=== PATIENT | male | born 1975 | race Caucasian/White ===

== ENCOUNTER 2020-12-16 21:23 | Emergency (ER) | payer MEDICAID ==
[2020-12-16] MEDS ORDERED: LEXAPRO5 MG PO (21:43)
[2020-12-16] MEDS ORDERED: XANAX 1MG1 MG PO (21:44)
[2020-12-16 22:06] LABS: BASO # 0.09 (0.02-0.10); EOS # 0.24 (0.04-0.40); HEMATOCRIT 50.9 % (42.0-52.0); HEMOGLOBIN 16.9 g/dL (13.5-18.0); LYMPH# 3.97 (1.50-4.00); MEAN CELL VOLUME 86 fl (78-100); MEAN CORPUSCULAR HEMOGLOBIN 29 pg (27-31); MEAN CORPUSCULAR HGB CONC 33 g/dL (33-37); MEAN PLATELET VOLUME 9.6 fl (7.4-10.4); MONO # 0.79 (0.20-0.80); PLATELET COUNT 272 K/mm3 (130-400); RED BLOOD COUNT 5.92 M/mm3 (4.20-5.60)
[2020-12-16 22:16] LABS: ALBUMIN 3.7 g/dL (3.5-5.0); POTASSIUM 3.7 mmol/L (3.5-5.1); SODIUM 138 mmol/L (136-145)
[2020-12-16 22:17] LABS: CALCIUM 8.9 mg/dL (8.3-10.5)
[2020-12-16 22:19] LABS: GLUCOSE 104 mg/dL (75-110); TOTAL PROTEIN 6.9 g/dL (6.4-8.3)
[2020-12-16 22:20] LABS: CARBON DIOXIDE 22 mmol/L (22-29)
[2020-12-16 22:24] LABS: AST-SGOT 15 U/L (5-34)
[2020-12-16 22:25] LABS: ALT/SGPT 20 U/L (0-55)
[2020-12-16 22:26] LABS: ACETAMINOPHEN < 1 ug/mL; ALCOHOL IN-HOUSE < 10 mg/dL (<10)
[2020-12-16 23:14] LABS: URINE APPEARANCE HAZY; URINE COLOR YELLOW
[2020-12-16 23:15] LABS: URINE BILIRUBIN 1+ (NEGATIVE); URINE BLOOD TRACE (NEGATIVE); URINE GLUCOSE NEGATIVE (NEGATIVE); URINE KETONE NEGATIVE (NEGATIVE); URINE LEUKOCYTE ESTERASE 2+ (NEGATIVE); URINE MUCUS PRESENT (NOT PRESENT); URINE NITRATE NEGATIVE (NEGATIVE); URINE PROTEIN(semi-quant) TRACE mg/dL (NEGATIVE); URINE UROBILINOGEN NORMAL (NORMAL)
[2020-12-16 23:38] LABS: TOTAL BILIRUBIN 0.3 mg/dL (0.2-1.2)
[2020-12-17 00:05] VITALS: BP 135/93
== END 2020-12-17 00:05 ==
LOC: ED 21:23
PROVIDERS: Family Medicine
DX: T42.4X2A Poisoning by benzodiazepines, intentional self-harm, initial encounter (principal); R82.71 Bacteriuria; R82.81 Pyuria; F41.9 Anxiety disorder, unspecified; F32.9 Major depressive disorder, single episode, unspecified; Z79.899 Other long term (current) drug therapy